=== PATIENT | female | born 1930 | race Caucasian/White ===

== ENCOUNTER 2016-06-16 11:40 | Emergency (ER) | payer MEDICARE, BC ==
--- NOTE | 2016-06-16 12:17 | EDM.PDOC ---
ED HPI GENERAL MEDICAL PROBLEM - General Chief Complaint: General Stated Complaint: WEAK/DIZZY Time Seen by Provider: 06/16/16 12:05 Source of Information: Reports: Patient, Family History Limitations: Reports: No limitations - History of Present Illness INITIAL COMMENTS - FREE TEXT/NARRATIVE: This 85 yo female patient reports to the ED with constipation, diffuse abdominal pain and intermittent lightheadedness/dizziness. The patient reports she has not had a bowel movement since Monday (06/14/16). The patient reports her lightheadedness started yesterday. The patient did reports she had a small hard bowel movement just prior to coming to the ED which relieved some of the discomfort. The patient reports she saw her forestry scientist (Dr. Reyes) on Monday. The patient has been taking senna with no results. The patient reports she has been eating and drinking, but she has not been eating as much as normal this week. 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) Rectal Pain Score (Numeric/FACES): 7 - Related Data Allergies Allergy/AdvReac Type Severity Reaction Status Date / Time No Known Allergies Allergy Verified 10/26/15 13:13 Home Meds: Home Meds Aspirin 81 mg PO DAILY 10/26/15 [History] B2/Vit A,C & E/Lut/Zeaxanth/Mn [Icaps] 1 tab PO BID 10/26/15 [History] Digoxin [Lanoxin] 125 mcg PO DAILY 10/26/15 [History] Diltiazem HCl [Cartia Xt] 180 mg PO DAILY 10/26/15 [History] Omeprazole 20 mg PO ASDIRECTED 10/26/15 [History] Potassium Chloride [Klor-Con 10] 10 meq PO BID 10/26/15 [History] Warfarin [Coumadin] 2.5 mg PO DAILY 10/26/15 [History] atorvaSTATin [Lipitor] 20 mg PO BEDTIME 10/26/15 [History] ED ROS GENERAL - Review of Systems Review Of Systems: ROS reveals no pertinent complaints other than HPI. ED EXAM, GENERAL - Physical Exam Exam: See Below Exam Limited By: No limitations General Appearance: alert, WD/WN, mild distress Eye Exam: bilateral eye: EOMI, normal inspection, PERRL Ears: normal external exam, normal canal, hearing grossly normal, normal TMs Nose: normal inspection, normal mucosa, no blood Throat/Mouth: Normal inspection, Normal lips, Normal teeth, Normal gums, Normal oropharynx, Normal voice, No airway compromise Head: atraumatic, normocephalic Neck: normal inspection, supple, non-tender, full range of motion Respiratory/Chest: no respiratory distress, lungs clear, normal breath sounds, no accessory muscle use, chest non-tender Cardiovascular: normal peripheral pulses, no gallop, no JVD, no murmur, no rub, irregularly irregular GI/Abdominal: normal bowel sounds, soft, no organomegaly, no distention, no abnormal bruit, no mass, tender (diffuse) (Female) Exam: Deferred Back Exam: normal inspection, full range of motion, NT Extremities: normal range of motion, non-tender, normal capillary refill, pedal edema Neurological: alert, oriented, CN II-XII intact, normal cognition, no motor/ sensory deficits Psychiatric: normal affect, normal mood Skin Exam: Warm, Dry, Intact, Normal color, No rash Lymphatic: no adenopathy Course - Vital Signs Last Recorded V/S: Last Vital Signs Temp 36.4 C 06/16/16 12:00 Pulse 82 06/16/16 12:00 Resp 16 06/16/16 12:00 BP 130/70 06/16/16 12:00 Pulse Ox 99 06/16/16 12:00 - Orders/Labs/Meds Orders: Active Orders 24 hr Category Date Time Status EKG Documentation Completion [RC] URGENT Care 06/16/16 12:03 Active Enema [RC] ASDIRECTED Care 06/16/16 13:30 Active Labs: Laboratory Tests 06/16/16 06/16/16 06/16/16 Range/Units 12:10 12:10 12:10 WBC 7.9 (5.0-10.0) 10^3/uL RBC 4.42 (4.2-5.4) 10^6/uL Hgb 13.1 (12.0-16.0) g/dL Hct 40.3 (37.0-47.0) % MCV 91.2 (80-100) fL MCH 29.6 (27.0-34.0) pg MCHC 32.5 L (33.0-35.0) g/dL Plt Count 226 (150-450) 10^3/uL Neut % (Auto) 69.1 (42.2-75.2) % Lymph % (Auto) 21.2 (20.5-50.1) % [place] % (Auto) 9.1 H (2-8) % Eos % (Auto) 0.3 L (1.0-3.0) % Baso % (Auto) 0.3 (0.0-1.0) % PT 21.2 H (9.0-12.0) SEC INR 2.1 H (0.9-1.2) Sodium 138 (135-145) mmol/L Potassium 4.0 (3.6-5.0) mmol/L Chloride 102 (101-111) mmol/L Carbon Dioxide 25.0 (21.0-31.0) mmol/L Anion Gap 15.0 BUN 29 H (7-18) mg/dL Creatinine 1.0 (0.6-1.3) mg/dL Est Cr Clr Drug Dosing TNP Estimated GFR (MDRD) 52 BUN/Creatinine Ratio 29.00 Glucose 109 H (74-105) mg/dL Calcium 9.9 (8.4-10.2) mg/dl Total Bilirubin 0.5 (0.2-1.0) mg/dL AST 26 (10-42) IU/L ALT 23 (10-60) IU/L Alkaline Phosphatase 83 (42-121) IU/L Troponin I 0.02 (0.00-0.02) ng/ml Total Protein 7.5 (6.7-8.2) g/dl Albumin 4.1 (3.2-5.5) g/dl Globulin 3.4 Albumin/Globulin Ratio 1.21 Urine Color (YELLOW) Urine Appearance (CLEAR) Urine pH (5.0-9.0) Ur Specific [place] (1.005-1.030) Urine Protein (NEGATIVE) Urine Glucose (UA) (NEGATIVE) Urine Ketones (NEGATIVE) Urine Occult Blood (NEGATIVE) Urine Nitrite (NEGATIVE) Urine Bilirubin (NEGATIVE) Urine Urobilinogen (0.2-1.0) mg/dL Ur Leukocyte Esterase (NEGATIVE) Urine RBC /HPF Urine WBC (0-5/HPF) /HPF Ur Epithelial Cells /HPF Urine Bacteria (0-FEW/HPF) /HPF Hyaline Casts /LPF Urine Mucus /LPF 06/16/16 Range/Units 13:09 WBC (5.0-10.0) 10^3/uL RBC (4.2-5.4) 10^6/uL Hgb (12.0-16.0) g/dL Hct (37.0-47.0) % MCV (80-100) fL MCH (27.0-34.0) pg MCHC (33.0-35.0) g/dL Plt Count (150-450) 10^3/uL Neut % (Auto) (42.2-75.2) % Lymph % (Auto) (20.5-50.1) % [place] % (Auto) (2-8) % Eos % (Auto) (1.0-3.0) % Baso % (Auto) (0.0-1.0) % PT (9.0-12.0) SEC INR (0.9-1.2) Sodium (135-145) mmol/L Potassium (3.6-5.0) mmol/L Chloride (101-111) mmol/L Carbon Dioxide (21.0-31.0) mmol/L Anion Gap BUN (7-18) mg/dL Creatinine (0.6-1.3) mg/dL Est Cr Clr Drug Dosing Estimated GFR (MDRD) BUN/Creatinine Ratio Glucose (74-105) mg/dL Calcium (8.4-10.2) mg/dl Total Bilirubin (0.2-1.0) mg/dL AST (10-42) IU/L ALT (10-60) IU/L Alkaline Phosphatase (42-121) IU/L Troponin I (0.00-0.02) ng/ml Total Protein (6.7-8.2) g/dl Albumin (3.2-5.5) g/dl Globulin Albumin/Globulin Ratio Urine Color Yellow (YELLOW) Urine Appearance Slightly cloudy (CLEAR) Urine pH 5.5 (5.0-9.0) Ur Specific [place] >= 1.030 (1.005-1.030) Urine Protein 30 H (NEGATIVE) Urine Glucose (UA) Negative (NEGATIVE) Urine Ketones Trace H (NEGATIVE) Urine Occult Blood Negative (NEGATIVE) Urine Nitrite Negative (NEGATIVE) Urine Bilirubin Negative (NEGATIVE) Urine Urobilinogen 0.2 (0.2-1.0) mg/dL Ur Leukocyte Esterase Negative (NEGATIVE) Urine RBC 0-5 /HPF Urine WBC 0-5 (0-5/HPF) /HPF Ur Epithelial Cells Few /HPF Urine Bacteria Moderate H (0-FEW/HPF) /HPF Hyaline Casts Few H /LPF Urine Mucus Few H /LPF - Re-Assessments/Exams Free Text/Narrative Re-Assessment/Exam: 06/16/16 15:47 Reassessment of the patient revealed that the patient was feeling much better and had had good results from the enemas. Departure - Departure Time of Disposition: 15:48 Disposition: Home, Self-Care 01 Condition: fair Clinical Impression: Constipation Qualifiers: Constipation type: other constipation type Qualified Code(s): K59.09 - Other constipation Instructions: Constipation, Adult Forms: ED Department Discharge Care Plan Goals: The patient and family were advised of the examination, lab and x-ray results during the visit. The patient was given enemas while in the ED to improve constipation. The patient was advised to take an adult dose of MiraLax in the mornings and her Citracel in the evenings for the next 4 days. The patient may stop the Senna for the next 4 days. The patient should increase her oral fluid intake. If the patient has any additional symptoms or concerns, the patient should follow-up with her primary care facility or return to the emergency department. - My Orders Last 24 Hours: My Active Orders 06/16/16 12:03 EKG Documentation Completion [RC] URGENT 06/16/16 13:30 Enema [RC] ASDIRECTED - Assessment/Plan Last 24 Hours: My Active Orders 06/16/16 12:03 EKG Documentation Completion [RC] URGENT 06/16/16 13:30 Enema [RC] ASDIRECTED
[2016-06-16 12:37] LABS: CHLORIDE,CL 102 mmol/L (101-111); SODIUM,NA 138 mmol/L (135-145)
--- NOTE | 2016-06-16 13:19 | CR ---
CLINICAL HISTORY: 85-year-old female with abdominal pain. INTERPRETATION: Large volume of stool in the transverse descending colon and rectum (obstipation) an d trouser zipper foreign body. Extensive arteriosclerotic vascular calcifications. No sign of abdominal soft tissue mass lesion or mechanical bowel obstruction. No free intraperitoneal air and the lung bases are clear. CONCLUSION: Obstipation.
[2016-06-16 15:50] VITALS: BP 162/94
--- NOTE | 2016-06-17 11:18 | EKG ---
06/16/2016 - SHAHRAM WEISS - TIME: 12:12 p.m. Atrial fibrillation with controlled ventricular response. There is incomplete left bundle-branch block. [facility] /[id number]
== END 2016-06-16 16:45 | disposition home or self-care (01) ==
LOC: DL.ED 11:40
DX: K59.09 Other constipation (principal); Z79.82 Long term (current) use of aspirin; Z79.01 Long term (current) use of anticoagulants; Z79.899 Other long term (current) drug therapy
CPT/HCPCS: 36415; 74020; 80053; 81001; 84484; 85025; 85610; 93005; 93010; 99283; 99284

== ENCOUNTER → 2017-12-19 | Day surgery (SDC) | payer MEDICARE, BC ==
[~2017-12-19] MED LIST: Dextrose 5%-0.45% NaCl 1,000 ML IV SCH; Midazolam 1 MG/ML 2 ML SDV IV ONE; Midazolam 1 MG/ML 2 ML SDV ONE; Sodium Chloride 0.9% 10 ML Syringe FLUSH PRN; fentaNYL 100 MCG/2 ML SDV IV ONE; fentaNYL 100 MCG/2 ML SDV ONE
--- NOTE | 2017-12-19 09:10 | OR ---
DATE: 12/19/2017 PROCEDURE: Total colonoscopy and multiple cold snare polypectomies. INSTRUMENT USED: CF-H180 AL Olympus video colonoscope. PREMEDICATIONS: Fentanyl 100 mcg intravenous, Versed 2.5 mg intravenous. Nasal O2 cannula. The procedure was done under pulse oximetry, BP recording, and surveillance system monitor. INDICATION: The patient with rectal bleeding and iron-deficiency anemia. Colonoscopic examination is done for detection of any polypoid lesions and removal. Endoscopic hemostasis therapy if needed. DESCRIPTION OF PROCEDURE: Initial rectal exam showed anal sphincter to be lax. Rigid anoscopy showed small internal hemorrhoids without bleeding from them. The colonoscope was passed with ease. A 5-mm sized benign-appearing rectal polyp was noted. Photograph was taken. Cold snare polypectomy was done. The tissue was retrieved and sent for histopathology. Numerous scattered diverticula were noted in the distal left colon along with deformity. The scope was passed with ease up to the ileocecal area. Photographs were taken of the normal-appearing cecum, identified by landmarks of appendiceal orifice and double-bulged ileocecal folds. No bleeding was noted from any of the visualized areas at the commencement of the examination. No stricture. No vascular ectasia. No large isolated ulcerations seen. No evidence of diffuse inflammatory bowel disease in the form of friability, contact bleeding, or ulcerations. There was moderate amount of fecal material that had to be aspirated clear. Probing the proximal sides of folds and flexures, using adequate distention and clearing up the stool material, withdrawal of the scope was made. 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 Multiple 5-mm sized benign-appearing polyps, 3 in number, were noted on the hepatic flexure area. Photograph was taken of the largest polyp. Cold snare polypectomies were done. The tissues were retrieved and sent for histopathology. No bleeding was noted from any of the visualized areas at the completion of examination. IMPRESSION: 1. Internal hemorrhoids. 2. Diverticulosis. 3. Multiple colonic polyps. The patient tolerated the procedure well. [facility] /[id number]
[2017-12-19 10:06] VITALS: BP 152/75
== END | disposition home or self-care (01) ==
LOC: DL.ENDO 05:23
PROVIDERS: ATTEND Internal Medicine Gastroenterology
DX: K62.5 Hemorrhage of anus and rectum (principal); D50.9 Iron deficiency anemia, unspecified; D12.3 Benign neoplasm of transverse colon; D12.8 Benign neoplasm of rectum; K64.8 Other hemorrhoids; K57.30 Diverticulosis of large intestine without perforation or abscess without bleeding; I10 Essential (primary) hypertension; E66.09 Other obesity due to excess calories; I48.2 Chronic atrial fibrillation; E78.5 Hyperlipidemia, unspecified; Z79.82 Long term (current) use of aspirin
CPT/HCPCS: J2250; J3010; J7042